=== PATIENT | male | born 1955 | race American Indian/Alaskan Native ===

== ENCOUNTER 2017-04-30 09:53 | Inpatient (IN) | payer MEDICARE ==
--- NOTE | 2017-04-30 10:58 | Emergency Department Report ---
ED General Adult HPI - General Chief complaint: Dizziness Stated complaint: DIZZINESS/NUASEA Time Seen by Provider: 04/30/17 10:57 Source: patient Mode of arrival: Ambulatory Limitations: No Limitations - History of Present Illness Initial comments: She complains of recurrent and worsening vertigo associated with dizziness and difficulty walking for the past 2 days. He states that this spinning sensation occurs worse when looking to the left. When he sits up in the gurney or changes his position it does get worse as well. He was able to walk. He is not aware of any acute loss of coordination. He denies headache. He does take Plavix and Coumadin. He has a history of atrial fibrillation. He states he has not had this problem in the past. He denies any earache or stuffiness or any apparent ENT type symptom otherwise. -: Gradual, days(s) Severity scale (0 -10): 0 Consistency: intermittent Improves with: none Worsens with: none Associated Symptoms: denies other symptoms (except as described) - Related Data Home Medications Medication Instructions Recorded Confirmed Last Taken Terazosin [Hytrin] 1 mg PO DAILY 04/04/13 12/13/14 12/13/14 Warfarin [Coumadin] 7.5 mg PO QDAY 04/04/13 12/13/14 12/12/14 ALBUTEROL Inhaler [ProAir HFA 2 puff IH QID PRN 11/10/14 12/13/14 12/13/14 Inhaler] Aspirin [Aspirin BABY CHEW TAB] 162 mg PO DAILY 11/10/14 12/13/14 12/13/14 Atorvastatin [Lipitor] 40 mg PO QHS 11/10/14 12/13/14 12/13/14 Calcitriol 0.25 mcg PO 3XW 11/10/14 12/13/14 12/13/14 Cholecalciferol Vit D3 [Vitamin D3] 3,000 unit PO QDAY 11/10/14 12/13/14 Finasteride [Proscar] 5 mg PO QDAY 11/10/14 12/13/14 12/13/14 Fosinopril Sodium 40 mg PO QDAY 11/10/14 12/13/14 12/13/14 Furosemide [Lasix] 40 mg PO BID 11/10/14 12/13/14 12/12/14 Nitroglycerin [Nitrostat] 0.4 mg SL Q5M 11/10/14 12/13/14 12/13/14 Potassium Chloride 20 Meq 20 meq PO DAILY 11/10/14 12/13/14 12/13/14 Tamsulosin 0.4 mg PO DAILY 11/10/14 12/13/14 12/13/14 Previous Rx's Medication Instructions Recorded Last Taken Type Metoprolol [Lopressor TAB] 50 mg PO Q8HR #90 tablet 12/14/14 Unknown Rx amLODIPine [Norvasc] 5 mg PO DAILY #30 tablet 12/14/14 Unknown Rx Allergies Allergy/AdvReac Type Severity Reaction Status Date / Time tetracycline [Tetracycline] Allergy Intermediate Nausea Verified 04/30/17 09:58 amlodipine [From Norvasc] AdvReac Vomiting Verified 04/30/17 09:58 ED Review of Systems ROS: Stated complaint: DIZZINESS/NUASEA Other details as noted in HPI Constitutional: denies: chills, fever Eyes: denies: eye pain, eye discharge, vision change ENT: denies: ear pain, throat pain Respiratory: denies: cough, shortness of breath, wheezing Cardiovascular: denies: chest pain, palpitations Endocrine: no symptoms reported Gastrointestinal: denies: abdominal pain, nausea, diarrhea Genitourinary: denies: urgency, dysuria Musculoskeletal: denies: back pain, joint swelling, arthralgia Skin: denies: rash, lesions Neurological: vertigo. denies: headache, weakness, numbness, paresthesias, confusion, abnormal gait Psychiatric: denies: anxiety, depression Hematological/Lymphatic: denies: easy bleeding, easy bruising ED Past Medical Hx - Past Medical History Previous Medical History?: Yes Hx Hypertension: Yes Hx Heart Attack/AMI: Yes (04/04/2013) Hx Congestive Heart Failure: No Hx Diabetes: Yes Hx Deep Vein Thrombosis: No Hx Pulmonary Embolism: No Hx Liver Disease: Yes (Hepatitis C) Hx Renal Disease: Yes Hx Asthma: Yes Hx COPD: No Hx Tuberculosis: No Hx HIV: No Additional medical history: sleep apnea, Hep C, Atrial Fib., Enlarged Prostate - Surgical History Past Surgical History?: Yes Hx Coronary Stent: Yes Hx Pacemaker: No Hx Internal Defibrillator: No Additional Surgical History: Graft L upper arm - Social History Smoking Status: Former Smoker Substance Use Type: None - Medications Home Medications: Home Medications Medication Instructions Recorded Confirmed Last Taken Type Terazosin [Hytrin] 1 mg PO DAILY 04/04/13 12/13/14 12/13/14 History Warfarin [Coumadin] 7.5 mg PO QDAY 04/04/13 12/13/14 12/12/14 History ALBUTEROL Inhaler [ProAir HFA 2 puff IH QID PRN 11/10/14 12/13/14 12/13/14 History Inhaler] Aspirin [Aspirin BABY CHEW TAB] 162 mg PO DAILY 11/10/14 12/13/14 12/13/14 History Atorvastatin [Lipitor] 40 mg PO QHS 11/10/14 12/13/14 12/13/14 History Calcitriol 0.25 mcg PO 3XW 11/10/14 12/13/14 12/13/14 History Cholecalciferol Vit D3 [Vitamin D3] 3,000 unit PO QDAY 11/10/14 12/13/14 History Finasteride [Proscar] 5 mg PO QDAY 11/10/14 12/13/14 12/13/14 History Fosinopril Sodium 40 mg PO QDAY 11/10/14 12/13/14 12/13/14 History Furosemide [Lasix] 40 mg PO BID 11/10/14 12/13/14 12/12/14 History Nitroglycerin [Nitrostat] 0.4 mg SL Q5M 11/10/14 12/13/14 12/13/14 History Potassium Chloride 20 Meq 20 meq PO DAILY 11/10/14 12/13/14 12/13/14 History Tamsulosin 0.4 mg PO DAILY 11/10/14 12/13/14 12/13/14 History Metoprolol [Lopressor TAB] 50 mg PO Q8HR #90 tablet 12/14/14 Unknown Rx amLODIPine [Norvasc] 5 mg PO DAILY #30 tablet 12/14/14 Unknown Rx ED Physical Exam - General Limitations: No Limitations General appearance: alert, in no apparent distress - Head Head exam: Present: atraumatic, normocephalic - Eye Eye exam: Present: normal appearance, PERRL, EOMI. Absent: scleral icterus, nystagmus - ENT ENT exam: Present: normal orophraynx, mucous membranes moist - Neck Neck exam: Present: normal inspection, other (no bruit noted). Absent: tenderness, meningismus - Respiratory Respiratory exam: Present: normal lung sounds bilaterally. Absent: respiratory distress - Cardiovascular Cardiovascular Exam: Present: regular rate, normal rhythm. Absent: systolic murmur, diastolic murmur, rubs, gallop - GI/Abdominal GI/Abdominal exam: Present: soft, normal bowel sounds. Absent: distended, tenderness, guarding, rebound, rigid - Rectal Rectal exam: Present: deferred - Extremities Exam Extremities exam: Present: normal inspection - Back Exam Back exam: Present: normal inspection - Neurological Exam Neurological exam: Present: alert, oriented X3, CN II-XII intact, other ( cerebellar testing was normal. Gait testing was deemed not safe as the patient was having substantial vertigo.). Absent: motor sensory deficit - Psychiatric Psychiatric exam: Present: normal affect, normal mood - Skin Skin exam: Present: warm, dry, intact, normal color. Absent: rash ED Course Vital Signs 04/30/17 04/30/17 04/30/17 09:58 10: 11:01 Temperature 97.8 F 97.8 F 97.5 F L Pulse Rate 78 76 Respiratory 18 18 16 Rate Blood Pressure 140/84 136/85 [Right] O2 Sat by Pulse 98 100 Oximetry - Reevaluation(s) Reevaluation #1: Patient states that his vertigo is still present but somewhat better. He will be referred to the hospitalist further care and evaluation. I am concerned that he is on Plavix and aspirin. He has history of atrial fibrillation. I would rather see have him stay to complete his cardiovascular workup. 04/30/17 12:43 ED Medical Decision Making - Lab Data Result diagrams: 04/30/17 10:35 04/30/17 10:35 Laboratory Results - last 24 hr 04/30/17 04/30/17 04/30/17 10:35 10:35 10:35 WBC 4.3 L RBC 3.70 Hgb 11.2 L Hct 33.9 L MCV 91 MCH 30 MCHC 33 RDW 16.1 H Plt Count 149 Lymph % (Auto) 22.5 [place] % (Auto) 11.1 H Eos % (Auto) 5.4 H Baso % (Auto) 1.5 Lymph # 1.0 L [place] # 0.5 Eos # 0.2 Baso # 0.1 Seg Neutrophils % 59.5 Seg Neutrophils # 2.5 PT 26.2 H INR 2.28 H Sodium 144 Potassium 3.8 Chloride 105.7 Carbon Dioxide 23 Anion Gap 19 BUN 35 H Creatinine 5.3 H Estimated GFR 13 BUN/Creatinine Ratio 7 Glucose 89 Calcium 8.5 Total Bilirubin AST ALT Alkaline Phosphatase Troponin T < 0.010 Total Protein Albumin Albumin/Globulin Ratio 04/30/17 10:59 WBC RBC Hgb Hct MCV MCH MCHC RDW Plt Count Lymph % (Auto) [place] % (Auto) Eos % (Auto) Baso % (Auto) Lymph # [place] # Eos # Baso # Seg Neutrophils % Seg Neutrophils # PT INR Sodium Potassium Chloride Carbon Dioxide Anion Gap BUN Creatinine Estimated GFR BUN/Creatinine Ratio Glucose Calcium Total Bilirubin 0.50 AST 9 ALT 7 Alkaline Phosphatase 71 Troponin T Total Protein 7.3 Albumin 3.7 L Albumin/Globulin Ratio 1.0 - EKG Data -: EKG Interpreted by Me EKG shows normal: sinus rhythm, intervals, QRS complexes, ST-T waves Rate: normal - EKG Data Interpretation: other (left axis deviation somewhat delayed R-wave progression) - Radiology Data interpreted by me: Chest x-ray and CT head showed nothing acute Critical care attestation.: If time is entered above; I have spent that time in minutes in the direct care of this critically ill patient, excluding procedure time. ED Disposition Clinical Impression: Vertigo, Anticoagulated on Coumadin Disposition: OP ADMIT IP TO THIS HOSP Is pt being admited?: Yes Does the pt Need Aspirin: No (on anticoagulant and Plavix) Condition: Stable Referrals: [facility],[place] [Other] - 3-5 Days Time of Disposition: 12:45
[2017-04-30 11:01] LABS: Anion Gap 19 mmol/L; BUN/Creatinine Ratio 7; Blood Urea Nitrogen 35 mg/dL (9-20); Calcium 8.5 mg/dL (8.4-10.2); Carbon Dioxide 23 mmol/L (22-30); Chloride 105.7 mmol/L (98-107); Glucose 89 mg/dL (75-100); Potassium 3.8 mmol/L (3.6-5.0); Sodium 144 mmol/L (137-145)
[2017-04-30 11:13] LABS: INR 2.28 (0.87-1.13)
[2017-04-30 11:31] LABS: Basophils % (Auto) 1.5 % (0.0-1.8); Eosinophils % (Auto) 5.4 % (0.0-4.3); Hematocrit 33.9 % (35.5-45.6); Hemoglobin 11.2 gm/dl (11.8-15.2); Mean Corpuscular HGB Conc 33 % (32-34); Mean Corpuscular Hemoglobin 30 pg (28-32); Mean Corpuscular Volume 91 fl (84-94); Platelet Count 149 K/mm3 (140-440); Red Cell Distribution Width 16.1 % (13.2-15.2); White Blood Count 4.3 K/mm3 (4.5-11.0)
--- NOTE | 2017-04-30 11:56 | Cat Scan Report ---
CT HEAD WITHOUT CONTRAST: HISTORY: Vertigo, on Coumadin therapy, evaluate for hemorrhage. Serial contiguous axial images were obtained through the cranium. Intravenous contrast material was not administered. The ventricles are normal in size and appearance. There is no mass effect or midline shift. No areas of abnormally increased or decreased attenuation are seen. No mass lesion is seen. There is complete opacification of the left maxillary sinus, right frontal sinus and right anterior ethmoid air cells. This appears chronic. The mastoid air cells and middle ear contents are within normal limits. IMPRESSION: Cranial CT scan within normal limits. Sinus disease which is likely chronic.
[2017-04-30 12:36] LABS: Alanine Aminotransferase 7 units/L (7-56); Albumin 3.7 g/dL (3.9-5); Alkaline Phosphatase 71 units/L (35-129); Total Protein 7.3 g/dL (6.3-8.2)
--- NOTE | 2017-04-30 13:02 | XRay Report ---
Single view chest: Compared to 12/14/14. History: Hypertension. Findings: Cardiomegaly. Trachea is midline. No consolidation, pneumothorax or pleural effusion. Impression: Cardiomegaly. No acute lung changes.
[2017-04-30 13:13] LABS: Bilirubin,Direct < 0.2 mg/dL (0-0.2); Bilirubin,Indirect 0.3 mg/dL
[2017-04-30] MEDS ORDERED: PROAIR IH PRN (20:02)
[2017-04-30] MEDS ORDERED: ZOFRAN IV PRN (20:08)
[2017-04-30] MEDS ORDERED: TYLENOL PO PRN (20:08)
[2017-04-30] MEDS ORDERED: MILK OF MAGNESIA PO PRN (20:08)
[2017-04-30] MEDS ORDERED: DULCOLAX PR PRN (20:08)
[2017-04-30] MEDS ORDERED: PERCOCET 5/325 PO PRN (20:09)
[2017-04-30] MEDS ORDERED: FOSINOPRIL SODIUM 40 MG PO SCH (20:15)
[2017-04-30] MEDS ORDERED: SODIUM CHLORIDE FLUSH SYRINGE 10 ML IV PRN (20:15)
[2017-04-30] MEDS ORDERED: PROVENTIL IH PRN (20:22)
--- NOTE | 2017-04-30 20:38 | History and Physical Report ---
History of Present Illness Date of examination: 04/30/17 Date of admission: 04/30/17 12:47 Chief complaint: Severe dizzines for 2 to 3 days History of present illness: History of Present illness 62 AAM with pmh of HTN ESRD ASTHMAand BPH c/o recurrent and worsening vertigo associated with dizziness and difficulty walking for the past 2 days. He states that this spinning sensation occurs worse when looking to the left. When he sits up in the gurney or changes his position it does get worse as well. He was able to walk. He is not aware of any acute loss of coordination. He denies headache. He does take Plavix and Coumadin. He has a history of atrial fibrillation. He states he has not had this problem in the past. He denies any earache or stuffiness or any apparent ENT type symptom otherwise. -: Gradual, days(s) Severity scale (0 -10): 0 Consistency: intermittent Improves with: none Worsens with: none Associated Symptoms: denies other symptoms (except as described) Past Medical History Previous Medical History?: Yes Hx Hypertension: Yes Hx Heart Attack/AMI: Yes (04/04/2013) Hx Diabetes: Yes Hx Liver Disease: Yes (Hepatitis C) Hx Renal Disease: Yes Hx Asthma: Yes Additional medical history: sleep apnea, Hep C, Atrial Fib., Enlarged Prostate ESRD-got av graft for pending HD - Surgical History Past Surgical History?: Yes Hx Coronary Stent: Yes Graft L upper arm - Social History Smoking Status: Former Smoker Substance Use Type: None - Medications Home Medications: Home Medications Medication Instructions Recorded Confirmed Last Taken Type Terazosin [Hytrin] 1 mg PO DAILY 04/04/13 12/13/14 12/13/14 History Warfarin [Coumadin] 7.5 mg PO QDAY 04/04/13 12/13/14 12/12/14 History ALBUTEROL Inhaler [ProAir HFA 2 puff IH QID PRN 11/10/14 12/13/14 12/13/14 History Inhaler] Aspirin [Aspirin BABY CHEW TAB] 162 mg PO DAILY 11/10/14 12/13/14 12/13/14 History Atorvastatin [Lipitor] 40 mg PO QHS 11/10/14 12/13/14 12/13/14 History Calcitriol 0.25 mcg PO 3XW 11/10/14 12/13/14 12/13/14 History Cholecalciferol Vit D3 [Vitamin D3] 3,000 unit PO QDAY 11/10/14 12/13/14 History Finasteride [Proscar] 5 mg PO QDAY 11/10/14 12/13/14 12/13/14 History Fosinopril Sodium 40 mg PO QDAY 11/10/14 12/13/14 12/13/14 History Furosemide [Lasix] 40 mg PO BID 11/10/14 12/13/14 12/12/14 History Nitroglycerin [Nitrostat] 0.4 mg SL Q5M 11/10/14 12/13/14 12/13/14 History Potassium Chloride 20 Meq 20 meq PO DAILY 11/10/14 12/13/14 12/13/14 History Tamsulosin 0.4 mg PO DAILY 11/10/14 12/13/14 12/13/14 History Metoprolol [Lopressor TAB] 50 mg PO Q8HR #90 tablet 12/14/14 Unknown Rx amLODIPine [Norvasc] 5 mg PO DAILY #30 tablet 12/14/14 Unknown Rx Review of Systems Stated complaint: DIZZINESS/NUASEA Other details as noted in HPI Constitutional: denies: chills, fever Eyes: denies: eye pain, eye discharge, vision change ENT: denies: ear pain, throat pain Respiratory: denies: cough, shortness of breath, wheezing Cardiovascular: denies: chest pain, palpitations Endocrine: no symptoms reported Gastrointestinal: denies: abdominal pain, nausea, diarrhea Genitourinary: denies: urgency, dysuria Musculoskeletal: denies: back pain, joint swelling, arthralgia Skin: denies: rash, lesions Neurological: vertigo. denies: headache, weakness, numbness, paresthesias, confusion, abnormal gait Psychiatric: denies: anxiety, depression Hematological/Lymphatic: denies: easy bleeding, easy bruising Medications and Allergies Allergies Allergy/AdvReac Type Severity Reaction Status Date / Time tetracycline [Tetracycline] Allergy Intermediate Nausea Verified 04/30/17 09:58 amlodipine [From Norvasc] AdvReac Vomiting Verified 04/30/17 09:58 Home Medications Medication Instructions Recorded Confirmed Last Taken Type Terazosin [Hytrin] 1 mg PO DAILY 04/04/13 12/13/14 12/13/14 History Warfarin [Coumadin] 7.5 mg PO QDAY 04/04/13 12/13/14 12/12/14 History ALBUTEROL Inhaler [ProAir HFA 2 puff IH QID PRN 11/10/14 12/13/14 12/13/14 History Inhaler] Aspirin [Aspirin BABY CHEW TAB] 162 mg PO DAILY 11/10/14 12/13/14 12/13/14 History Atorvastatin [Lipitor] 40 mg PO QHS 11/10/14 12/13/14 12/13/14 History Calcitriol 0.25 mcg PO 3XW 11/10/14 12/13/14 12/13/14 History Cholecalciferol Vit D3 [Vitamin D3] 3,000 unit PO QDAY 11/10/14 12/13/14 History Finasteride [Proscar] 5 mg PO QDAY 11/10/14 12/13/14 12/13/14 History Fosinopril Sodium 40 mg PO QDAY 11/10/14 12/13/14 12/13/14 History Furosemide [Lasix] 40 mg PO BID 11/10/14 12/13/14 12/12/14 History Nitroglycerin [Nitrostat] 0.4 mg SL Q5M 11/10/14 12/13/14 12/13/14 History Potassium Chloride 20 Meq 20 meq PO DAILY 11/10/14 12/13/14 12/13/14 History Tamsulosin 0.4 mg PO DAILY 11/10/14 12/13/14 12/13/14 History Metoprolol [Lopressor TAB] 50 mg PO Q8HR #90 tablet 12/14/14 Unknown Rx amLODIPine [Norvasc] 5 mg PO DAILY #30 tablet 12/14/14 Unknown Rx Active Meds: Active Medications Acetaminophen (Tylenol) 650 mg PO Q4H PRN PRN Reason: Pain MILD(1-3)/Fever >100.5/MENDOZA Albuterol (Proventil) 2.5 mg IH Q4HRT PRN PRN Reason: Shortness Of Breath Amlodipine Besylate (Norvasc) 5 mg PO DAILY [place] Aspirin (Baby Aspirin) 162 mg PO DAILY [place] Bisacodyl (Dulcolax) 10 mg [place] QDAY PRN PRN Reason: Constipation unrelieved by MOM Calcitriol (Rocaltrol) 0.25 mcg PO MoWeFr [place] Cholecalciferol (Vitamin D3) 3,000 unit PO QDAY [place] Famotidine (Pepcid) 10 mg IV BID [place] Finasteride (Proscar) 5 mg PO QDAY [place] Sodium Chloride (Nacl 0.45% 1000 Ml) 1,000 mls @ 42 mls/hr IV DIRECT [place] Stop: 05/01/17 19:00 Influenza Virus Vaccine Quadrival (Fluarix Quad [id number](36 Mos+)) 0.5 ml IM .ONCE ONE Stop: 05/01/17 12:01 Lisinopril (Zestril) 40 mg PO QDAY [place] Magnesium Hydroxide (Milk Of Magnesia) 30 ml PO Q4H PRN PRN Reason: Constipation Ondansetron HCl (Zofran) 4 mg IV Q8H PRN PRN Reason: N/V unrelieved by Reglan Oxycodone/Acetaminophen (Percocet 5/325) 1 tab PO Q6H PRN PRN Reason: Pain, Moderate (4-6) Simvastatin (Zocor) 20 mg PO QHS [place] Sodium Chloride (Sodium Chloride Flush Syringe 10 Ml) 10 ml IV PRN PRN PRN Reason: LINE FLUSH Exam - Constitutional Vitals: Temp Pulse Resp BP Pulse Ox 97.6 F 74 20 144/88 98 04/30/17 15:46 04/30/17 15:46 04/30/17 15:46 04/30/17 15:46 04/30/17 16:10 General appearance: Present: no acute distress, well-nourished - EENT Eyes: Present: PERRL ENT: hearing intact, clear oral mucosa - Neck Neck: Present: supple, normal ROM - Respiratory Respiratory effort: normal Respiratory: bilateral: CTA - Cardiovascular Heart rate: 80 Rhythm: irregularly irregular Heart Sounds: Present: S1 & S2. Absent: rub, click - Extremities Extremities: no ischemia, pulses intact, pulses symmetrical, No edema Peripheral Pulses: within normal limits - Abdominal General gastrointestinal: Present: soft, non-tender, non-distended, normal bowel sounds Male genitourinary: Present: normal - Rectal Rectal Exam: deferred - Integumentary Integumentary: Present: clear, warm, dry - Musculoskeletal Musculoskeletal: gait normal, strength equal bilaterally - Psychiatric Psychiatric: appropriate mood/affect, intact judgment & insight - Neurologic Neurologic: CNII-XII intact, moves all extremities - Allied Health Allied health notes reviewed: nursing, case management Results - Labs CBC & Chem 7: 05/01/17 06:58 05/01/17 06:58 Labs: Laboratory Last Values WBC 4.3 K/mm3 (4.5-11.0) L 04/30/17 10:35 RBC 3.70 M/mm3 (3.65-5.03) 04/30/17 10:35 Hgb 11.2 gm/dl (11.8-15.2) L 04/30/17 10:35 Hct 33.9 % (35.5-45.6) L 04/30/17 10:35 MCV 91 fl (84-94) 04/30/17 10:35 MCH 30 pg (28-32) 04/30/17 10:35 MCHC 33 % (32-34) 04/30/17 10:35 RDW 16.1 % (13.2-15.2) H 04/30/17 10:35 Plt Count 149 K/mm3 (140-440) 04/30/17 10:35 Lymph % (Auto) 22.5 % (13.4-35.0) 04/30/17 10:35 [place] % (Auto) 11.1 % (0.0-7.3) H 04/30/17 10:35 Eos % (Auto) 5.4 % (0.0-4.3) H 04/30/17 10:35 Baso % (Auto) 1.5 % (0.0-1.8) 04/30/17 10:35 Lymph # 1.0 K/mm3 (1.2-5.4) L 04/30/17 10:35 [place] # 0.5 K/mm3 (0.0-0.8) 04/30/17 10:35 Eos # 0.2 K/mm3 (0.0-0.4) 04/30/17 10:35 Baso # 0.1 K/mm3 (0.0-0.1) 04/30/17 10:35 Seg Neutrophils % 59.5 % (40.0-70.0) 04/30/17 10:35 Seg Neutrophils # 2.5 K/mm3 (1.8-7.7) 04/30/17 10:35 PT 26.2 Sec. (12.2-14.9) H 04/30/17 10:35 INR 2.28 (0.87-1.13) H 04/30/17 10:35 Sodium 144 mmol/L (137-145) 04/30/17 10:35 Potassium 3.8 mmol/L (3.6-5.0) 04/30/17 10:35 Chloride 105.7 mmol/L (98-107) 04/30/17 10:35 Carbon Dioxide 23 mmol/L (22-30) 04/30/17 10:35 Anion Gap 19 mmol/L 04/30/17 10:35 BUN 35 mg/dL (9-20) H 04/30/17 10:35 Creatinine 5.3 mg/dL (0.8-1.5) H 04/30/17 10:35 Estimated GFR 13 ml/min 04/30/17 10:35 BUN/Creatinine Ratio 7 % 04/30/17 10:35 Glucose 89 mg/dL (75-100) 04/30/17 10:35 POC Glucose 82 (70-105) 04/30/17 15:53 Hemoglobin A1c 4.6 % (4-6) 04/30/17 Unknown Calcium 8.5 mg/dL (8.4-10.2) 04/30/17 10:35 Total Bilirubin 0.50 mg/dL (0.1-1.2) 04/30/17 10:59 Direct Bilirubin < 0.2 mg/dL (0-0.2) 04/30/17 10:59 Indirect Bilirubin 0.3 mg/dL 04/30/17 10:59 AST 9 units/L (5-40) 04/30/17 10:59 ALT 7 units/L (7-56) 04/30/17 10:59 Alkaline Phosphatase 71 units/L (35-129) 04/30/17 10:59 Troponin T < 0.010 ng/mL (0.00-0.029) 04/30/17 15:59 Total Protein 7.3 g/dL (6.3-8.2) 04/30/17 10:59 Albumin 3.7 g/dL (3.9-5) L 04/30/17 10:59 Albumin/Globulin Ratio 1.0 % 04/30/17 10:59 Short CBC 04/30/17 05/01/17 Range/Units 10:35 06:58 WBC 4.3 L 4.7 (4.5-11.0) K/mm3 Hgb 11.2 L 11.7 L (11.8-15.2) gm/dl Hct 33.9 L 36.6 (35.5-45.6) % Plt Count 149 147 (140-440) K/mm3 BMP 04/30/17 05/01/17 10:35 06:58 Sodium 144 142 Potassium 3.8 4.1 Chloride 105.7 104.6 Carbon Dioxide 23 25 BUN 35 H 33 H Creatinine 5.3 H 4.8 H Glucose 89 88 Calcium 8.5 8.8 Cardiac Enzymes 04/30/17 04/30/17 04/30/17 Range/Units 10:35 13:12 15:59 Troponin T < 0.010 < 0.010 < 0.010 (0.00-0.029) ng/mL Liver Function 04/30/17 05/01/17 Range/Units 10:59 06:58 Total Bilirubin 0.50 0.50 (0.1-1.2) mg/dL Direct Bilirubin < 0.2 (0-0.2) mg/dL AST 9 9 (5-40) units/L ALT 7 7 (7-56) units/L Alkaline Phosphatase 71 61 (35-129) units/L Albumin 3.7 L 3.8 L (3.9-5) g/dL - Imaging and Cardiology EKG: report reviewed (NSR 76/min) Chest x-ray: report reviewed (NAF) CT Scan - head: report reviewed (NAF) Assessment and Plan Advance Directives: Yes (full code) VTE prophylaxis?: Chemical Plan of care discussed with patient/family: Yes - Patient Problems (1) Vertebro-basilar artery syndrome Current Visit: Yes Status: Acute Plan to address problem: Severe dizzines. Possible BPPV MRI/MRA ordered to r/o Brainstem stroke.Also CDS and ECHO as part of stroke w/u if MRI etc negative to f/u with Dr Morel who is a specialist for BPPV (2) Chronic renal failure, stage 4 (severe) Current Visit: Yes Status: Chronic Plan to address problem: Nephrology consulted Has AVG in LUE Not on HD yet (3) Anticoagulated on Coumadin Current Visit: Yes Status: Chronic Plan to address problem: Not in AFIB. Coumadin maybe d/c'd (4) HTN (hypertension) Current Visit: Yes Status: Chronic Qualifiers: Hypertension type: essential hypertension Qualified Code(s): I10 - Essential (primary) hypertension Plan to address problem: on Fosinopril (5) BPH (benign prostatic hyperplasia) Current Visit: Yes Status: Chronic Qualifiers: Lower urinary tract symptom presence: symptoms present Lower urinary tract symptom detail: urinary hesitancy Qualified Code(s): N40.1 - Benign prostatic hyperplasia with lower urinary tract symptoms; R39.11 - Hesitancy of micturition ; R39.11 - Hesitancy of micturition Plan to address problem: cont proscar and Flomax (6) Asthma Current Visit: Yes Status: Inactive Qualifiers: Asthma severity: unspecified severity Asthma persistence: A Asthma complication type: A Plan to address problem: Cont Bronchodilator's PRN (7) DVT prophylaxis Current Visit: Yes Status: Acute Plan to address problem: on Heparin
[2017-04-30] MEDS ORDERED: NACL 0.45% 1000 ML 1,000 ML IV SCH (21:00)
[2017-05-01] MEDS: BABY ASPIRIN PO SCH ×2 (01:25→12:17)
[2017-05-01] MEDS: ZOCOR PO SCH (01:25)
[2017-05-01] MEDS: PEPCID IV SCH ×2 (01:25→09:37)
[2017-05-01] MEDS: NORVASC PO SCH ×2 (01:26→12:18)
[2017-05-01] MEDS: PROSCAR PO SCH ×2 (01:28→12:16)
[2017-05-01] MEDS ORDERED: ANTIVERT PO ONE (04:45)
[2017-05-01 07:50] LABS: Basophils % (Auto) 1.2 % (0.0-1.8); Eosinophils % (Auto) 4.5 % (0.0-4.3); Hematocrit 36.6 % (35.5-45.6); Hemoglobin 11.7 gm/dl (11.8-15.2); Mean Corpuscular HGB Conc 32 % (32-34); Mean Corpuscular Hemoglobin 30 pg (28-32); Mean Corpuscular Volume 92 fl (84-94); Platelet Count 147 K/mm3 (140-440); Red Blood Count 3.98 M/mm3 (3.65-5.03); Red Cell Distribution Width 16.1 % (13.2-15.2); White Blood Count 4.7 K/mm3 (4.5-11.0)
[2017-05-01 08:09] LABS: Albumin 3.8 g/dL (3.9-5); Albumin/Globulin Ratio 1.2 %; Bilirubin,Total 0.5 mg/dL (0.1-1.2); Calcium 8.8 mg/dL (8.4-10.2); Chloride 104.6 mmol/L (98-107); Potassium 4.1 mmol/L (3.6-5.0); Total Protein 7.1 g/dL (6.3-8.2)
--- NOTE | 2017-05-01 09:47 | Consultation ---
History of Present Illness - Reason for Consult Consult date: 05/01/17 chronic renal failure - History of Present Illness The patient is a 62 YP AAM with medical history significant for Type 2 DM, HTN, HLD, Obesity, CKd stage 5, IVAN, Hep C, Atrial Fib. and Enlarged Prostate came to the hospital with 3 days h/o dizziness / vertigo. The symptoms are worse on turning the head on any side. Associated symptoms include nausea. Patient denies any syncope, MENDOZA, blurry vision, vomiting, CP, sob or weakness. He had left arm AVF placed last month. He has chronic decreased appetite but no weight loss. 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 Past History Past Medical History: anemia, diabetes, hypertension, hyperlipidemia, renal failure, other (IVAN, A.fib) Medications and Allergies Allergies Allergy/AdvReac Type Severity Reaction Status Date / Time tetracycline [Tetracycline] Allergy Intermediate Nausea Verified 04/30/17 09:58 amlodipine [From Norvas] AdvReac Vomiting Verified 04/30/17 09:58 Home Medications Medication Instructions Recorded Confirmed Last Taken Type Terazosin [Hytrin] 1 mg PO DAILY 04/04/13 12/13/14 12/13/14 History Warfarin [Coumadin] 7.5 mg PO QDAY 04/04/13 12/13/14 12/12/14 History ALBUTEROL Inhaler [ProAir HFA 2 puff IH QID PRN 11/10/14 12/13/14 12/13/14 History Inhaler] Aspirin [Aspirin BABY CHEW TAB] 162 mg PO DAILY 11/10/14 12/13/14 12/13/14 History Atorvastatin [Lipitor] 40 mg PO QHS 11/10/14 12/13/14 12/13/14 History Calcitriol 0.25 mcg PO 3XW 11/10/14 12/13/14 12/13/14 History Cholecalciferol Vit D3 [Vitamin D3] 3,000 unit PO QDAY 11/10/14 12/13/14 History Finasteride [Proscar] 5 mg PO QDAY 11/10/14 12/13/14 12/13/14 History Fosinopril Sodium 40 mg PO QDAY 11/10/14 12/13/14 12/13/14 History Furosemide [Lasix] 40 mg PO BID 04/12/13/14 12/12/14 History Nitroglycerin [Nitrostat] 0.4 mg SL Q5M 11/10/14 12/13/14 12/13/14 History Potassium Chloride 20 Meq 20 meq PO DAILY 11/10/14 12/13/14 12/13/14 History Tamsulosin 0.4 mg PO DAILY 11/10/14 12/13/14 12/13/14 History Metoprolol [Lopressor TAB] 50 mg PO Q8HR #90 tablet 12/14/14 Unknown Rx amLODIPine [Norvasc] 5 mg PO DAILY #30 tablet 12/14/14 Unknown Rx Active Meds: Active Medications Acetaminophen (Tylenol) 650 mg PO Q4H PRN PRN Reason: Pain MILD(1-3)/Fever >100.5/MENDOZA Albuterol (Proventil) 2.5 mg IH Q4HRT PRN PRN Reason: Shortness Of Breath Amlodipine Besylate (Norvasc) 5 mg PO DAILY [facility] Last Admin: 05/01/17 01:26 Dose: 5 mg Aspirin (Baby Aspirin) 162 mg PO DAILY [facility] Last Admin: 05/01/17 01:25 Dose: 162 mg Bisacodyl (Dulcolax) 10 mg [place] QDAY PRN PRN Reason: Constipation unrelieved by MOM Calcitriol (Rocaltrol) 0.25 mcg PO MoWeFr [facility] Cholecalciferol (Vitamin D3) 3,000 unit PO QDAY [facility] Famotidine (Pepcid) 10 mg IV BID [facility] Last Admin: 05/01/17 09:37 Dose: 10 mg Finasteride (Proscar) 5 mg PO QDAY [facility] Last Admin: 05/01/17 01:28 Dose: 5 mg Sodium Chloride (Nacl 0.45% 1000 Ml) 1,000 mls @ 42 mls/hr IV DIRECT [facility] Stop: 05/01/17 19:00 Last Admin: 05/01/17 09:41 Dose: 42 mls/hr Influenza Virus Vaccine Quadrival (Fluarix Quad [id number](36 Mos+)) 0.5 ml IM .ONCE ONE Stop: 05/01/17 12:01 Lisinopril (Zestril) 40 mg PO QDAY [facility] Magnesium Hydroxide (Milk Of Magnesia) 30 ml PO Q4H PRN PRN Reason: Constipation Ondansetron HCl (Zofran) 4 mg IV Q8H PRN PRN Reason: N/V unrelieved by Reglan Last Admin: 05/01/17 04:45 Dose: 4 mg Oxycodone/Acetaminophen (Percocet 5/325) 1 tab PO Q6H PRN PRN Reason: Pain, Moderate (4-6) Simvastatin (Zocor) 20 mg PO QHS [facility] Last Admin: 05/01/17 01:25 Dose: 20 mg Sodium Chloride (Sodium Chloride Flush Syringe 10 Ml) 10 ml IV PRN PRN PRN Reason: LINE FLUSH Review of Systems Constitutional: anorexia, poor appetite, no weight loss, no weight gain, no fever, no chills, no weakness Ears, nose, mouth and throat: no epistaxis Cardiovascular: lightheadedness, high blood pressure, leg edema, no chest pain, no orthopnea, no palpitations, no syncope, no shortness of breath, no paroxysmal nocturnal dyspnea Respiratory: sleep apnea, no cough, no cough with sputum, no hemoptysis, no shortness of breath, no dyspnea on exertion Gastrointestinal: nausea, no abdominal pain, no vomiting, no diarrhea, no hematemesis, no melena Genitourinary Male: no dysuria, no hematuria Rectal: no bleeding Musculoskeletal: no hot joints Integumentary: no redness, no wounds Neurological: vertigo, no paralysis, no weakness, no syncope, no headaches, no convulsions, no change in speech, no confusion, no memory loss, no double vision , no loss of vision Psychiatric: no disorientation Hematologic/Lymphatic: no easy bruising, no easy bleeding Exam - Vital Signs Vital signs: Vital Signs Temp Resp 97.8 F 18 04/30/17 09:58 04/30/17 09:58 - General Appearance General appearance: well-developed, well-nourished, appears stated age, obese, other (no distress) EENT: ATNC, PERRL, mucous membranes moist, hearing intact, vision intact Neck: Present: neck supple, trachea midline Respiratory: Clear to Ascultation Heart: regular, S1S2, no murmurs Gastrointestinal: Present: normoactive bowel sounds. Absent: tenderness, distended Integumentary: no rash Neurologic: no focal deficit, no asterixis, alert and oriented x3, CN 3-12 intact Musculoskeletal: Present: other (1+ edema of both LEs noted, Left arm AVF with good thrill) Psychiatric: mood/affect appropriate, cooperative Results - Lab Results 05/01/17 06:58 05/01/17 06:58 Most recent lab results Calcium 8.8 mg/dL (8.4-10.2) 05/01/17 06:58 Assessment and Plan - Patient Problems (1) Chronic kidney disease, stage 5 Current Visit: Yes Status: Chronic Plan to address problem: Patient with h/o CKD stage 5 followed at [place]. Monitor for RT needs. Patient has left arm AVF. Anticipate initiating hemodialysis soon. (2) Vertigo Current Visit: Yes Status: Acute (3) HTN (hypertension) Current Visit: Yes Status: Chronic Qualifiers: Hypertension type: essential hypertension Qualified Code(s): I10 - Essential (primary) hypertension Plan to address problem: BP well controlled. (4) Anemia secondary to renal failure Current Visit: Yes Status: Chronic
[2017-05-01] MEDS ORDERED: CALCITRIOL 0.25 MCG PO SCH (10:00)
--- NOTE | 2017-05-01 10:54 | Magnetic Resonance Report ---
MRI OF THE BRAIN WITHOUT CONTRAST: HISTORY: CVA PROCEDURE: Multiplanar, multisequence MR imaging of the brain without IV contrast was performed. FINDINGS: CT head without contrast dated 04/30/17 was again reviewed. No evidence for acute ischemia, hemorrhage or mass. No chronic infarct or extra-axial fluid collection. Mild nonspecific chronic ischemic changes in the white matter and amy are noted. The midline structures are central. The basal cisterns are patent. Normal ventricular size. The orbital cavities and sella turcica demonstrate no abnormality. Occlusion of the left maxillary sinus and right frontal sinus with diffusion restriction is noted. Correlate for acute sinusitis. IMPRESSION: No acute intracranial process. No evidence for acute CVA. Sinus disease as described. Correlate for acute on chronic sinusitis.
--- NOTE | 2017-05-01 10:54 | Magnetic Resonance Report ---
MRA HEAD WITHOUT CONTRAST HISTORY: CVA, stroke. [id number] imaging with MIP reformations of the [place] is submitted. The arteries appear widely patent and free of hemodynamically significant stenosis or aneurysm dilatation. Both vertebral arteries are identified appearing patent as well. IMPRESSION: Unremarkable MRA head.
[2017-05-01] MEDS ORDERED: Fluarix Quad 2017-2018(36 MOS+) IM ONE (12:00)
[2017-05-01] MEDS: VITAMIN D3 PO SCH (12:16)
[2017-05-01] MEDS: ZESTRIL PO SCH (12:16)
--- NOTE | 2017-05-01 16:22 | Progress Note ---
Assessment and Plan /Vertebro-basilar artery syndrome Severe dizzines with positional change. Possible BPPV, place on meclizine MRI/MRA ordered negative for Brainstem stroke. <50 % stenosis on CDS and ECHO showed normal EF Patient can f/u with Dr Morel who is a specialist for BPPV /Chronic renal failure, stage 5 (severe) Nephrology consulted Has AVG in LUE Not on HD yet renal function stable /Anticoagulated on Coumadin likely for paroxysmal AFIB. 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 Medical records and medication list reviewed. No acute event overnight noted by the RN. Patient denies any chest pain or difficulty breathing. Patient is tolerating diet. He continue to c/o dizziness with positional change Discussed plan of care at bedside with patient. Objective - Exam Narrative Exam: GENERAL: well-developed and well-nourished WM lying on bed appeared to be in no discomfort. HEENT: Normocephalic. Atraumatic. No conjunctival congestion or icterus. Patient has moist mucous membranes. NECK: Supple. Trachea midline. CHEST/LUNGS: Clear to auscultated bilaterally, breathing nonlabored. No wheezes crackles or rhonchi. HEART/CARDIOVASCULAR: Regular in rate and rhythm. S1 and S2 positive. ABDOMEN: Abdomen is soft, nontender. Patient has normal bowel sounds. SKIN: There is no rash. Warm and dry. NEURO: No focal motor deficit. Follows command. MUSCULOSKELETAL: No joint effusion or tenderness. EXTRIMITY: No edema, no cyanosis or clubbing. PSYCH: Cooperative. - Constitutional Vitals: Vital Signs - 12hr 05/01/17 05/01/17 05/01/17 08:24 12:04 12:16 Temperature 98.0 F 98.2 F Pulse Rate 73 80 82 Respiratory 20 20 Rate Blood Pressure 133/86 146/98 146/98 O2 Sat by Pulse 97 97 Oximetry 05/01/17 16:05 Temperature 98.2 F Pulse Rate 72 Respiratory 22 Rate Blood Pressure 137/82 O2 Sat by Pulse 96 Oximetry - Labs CBC & Chem 7: 05/01/17 06:58 05/02/17 04:51 Labs: Abnormal lab results 05/01/17 05/01/17 Range/Units 06:58 06:58 Hgb 11.7 L (11.8-15.2) gm/dl RDW 16.1 H (13.2-15.2) % Coles % (Auto) 10.3 H (0.0-7.3) % Eos % (Auto) 4.5 H (0.0-4.3) % Lymph # 0.6 L (1.2-5.4) K/mm3 Seg Neutrophils % 70.3 H (40.0-70.0) % BUN 33 H (9-20) mg/dL Creatinine 4.8 H (0.8-1.5) mg/dL Albumin 3.8 L (3.9-5) g/dL HDL Cholesterol 37 L (40-59) mg/dL
[2017-05-01] MEDS ORDERED: ANTIVERT PO PRN (16:32)
[2017-05-02] MEDS: PEPCID IV SCH ×3 (02:00→21:23)
[2017-05-02] MEDS: ZOCOR PO SCH ×2 (02:00→21:24)
[2017-05-02 06:10] LABS: Calcium 8.5 mg/dL (8.4-10.2); Chloride 105.3 mmol/L (98-107); Phosphorous 3.7 mg/dL (2.5-4.5); Potassium 3.9 mmol/L (3.6-5.0)
--- NOTE | 2017-05-02 08:49 | Progress Note ---
Assessment and Plan - Patient Problems (1) Chronic kidney disease, stage 5 Current Visit: Yes Status: Chronic Plan to address problem: Patient with h/o CKD stage 5 followed at [place]. 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 Patient has left arm AVF. (2) Vertigo Current Visit: Yes Status: Acute (3) HTN (hypertension) Current Visit: Yes Status: Chronic Qualifiers: Hypertension type: essential hypertension Qualified Code(s): I10 - Essential (primary) hypertension Plan to address problem: BP well controlled. (4) Anemia secondary to renal failure Current Visit: Yes Status: Chronic Subjective Date of service: 05/02/17 Interval history: Patient continues to have vertigo on head movements. Overall symptoms are better. Objective - Vital Signs Vital signs: Vital Signs - 12hr 05/01/17 05/02/17 05/02/17 20:54 00:29 00:32 Temperature 97.9 F 97.7 F Pulse Rate 71 69 Respiratory 18 18 18 Rate Blood Pressure 153/98 148/93 O2 Sat by Pulse 97 96 Oximetry 05/02/17 05/02/17 05/02/17 04:22 04:25 08:35 Temperature 98.3 F 98.0 F Pulse Rate 67 76 Respiratory 20 20 20 Rate Blood Pressure 139/87 152/95 O2 Sat by Pulse 94 98 Oximetry - General Appearance General appearance: well-developed, well-nourished, appears stated age, obese, other (no distress) EENT: ATNC, PERRL, mucous membranes moist, hearing intact, vision intact Neck: no JVD, supple Respiratory: Present: Clear to Ascultation Cardiology: regular, S1S2, no murmurs Gastrointestinal: normoactive bowel sounds, no tenderness, no distended, obese Integumentary: no rash Neurologic: no focal deficit, no asterixis, alert and oriented x3, CN 3-12 intact Musculoskeletal: other (no edema, left arm AVF) Psychiatric: mood/affect appropriate, cooperative - Lab 05/01/17 06:58 05/02/17 04:51 Most recent lab results Calcium 8.5 mg/dL (8.4-10.2) 05/02/17 04:51 Phosphorus 3.70 mg/dL (2.5-4.5) 05/02/17 04:51
[2017-05-02] MEDS: NORVASC PO SCH (11:24)
[2017-05-02] MEDS: ZESTRIL PO SCH (11:25)
[2017-05-02] MEDS: BABY ASPIRIN PO SCH (11:25)
[2017-05-02] MEDS: PROSCAR PO SCH (11:26)
[2017-05-02] MEDS: VITAMIN D3 PO SCH (11:28)
[2017-05-02 13:00] LABS: INR 2.09 (0.87-1.13)
--- NOTE | 2017-05-02 16:44 | Progress Note ---
Assessment and Plan /possible chronic sinusitis noted on MRI, could be the possible cause of dizziness cont on zithromax /Vertebro-basilar artery syndrome Severe dizzines with positional change. Possible BPPV vs chronic sinusitis, placed on meclizine and zithromax MRI/MRA ordered negative for Brainstem stroke. <50 % stenosis on CDS and ECHO showed normal EF Patient can f/u with Dr Morel who is a specialist for BPPV /Chronic renal failure, stage 5 (severe) Nephrology consulted Has AVG in LUE Not on HD yet renal function stable /Anticoagulated on Coumadin likely for paroxysmal AFIB. 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 Medical records and medication list reviewed. No acute event overnight noted by the RN. Patient denies any chest pain or difficulty breathing. Patient is tolerating diet. He continue to c/o dizziness with positional change but lot better Discussed plan of care at bedside with patient. he states not comfortable going home as he still symptomatic PT eval pending Objective - Exam Narrative Exam: GENERAL: well-developed and well-nourished WM lying on bed appeared to be in no discomfort. HEENT: Normocephalic. Atraumatic. No conjunctival congestion or icterus. Patient has moist mucous membranes. NECK: Supple. Trachea midline. CHEST/LUNGS: Clear to auscultated bilaterally, breathing nonlabored. No wheezes crackles or rhonchi. HEART/CARDIOVASCULAR: Regular in rate and rhythm. S1 and S2 positive. ABDOMEN: Abdomen is soft, nontender. Patient has normal bowel sounds. SKIN: There is no rash. Warm and dry. NEURO: No focal motor deficit. Follows command. MUSCULOSKELETAL: No joint effusion or tenderness. EXTRIMITY: No edema, no cyanosis or clubbing. PSYCH: Cooperative. - Constitutional Vitals: Vital Signs - 12hr 05/02/17 05/02/17 05/02/17 08:35 11:25 12:57 Temperature 98.0 F 98.2 F Pulse Rate 76 76 74 Respiratory 20 20 Rate Blood Pressure 152/95 152/95 149/94 O2 Sat by Pulse 98 97 Oximetry 05/02/17 15:54 Temperature 98.5 F Pulse Rate 71 Respiratory 20 Rate Blood Pressure 135/86 O2 Sat by Pulse 96 Oximetry - Labs CBC & Chem 7: 05/01/17 06:58 05/03/17 05:23 Labs: Abnormal lab results 05/02/17 05/02/17 Range/Units 04:51 11:56 PT 24.5 H (12.2-14.9) Sec. INR 2.09 H (0.87-1.13) BUN 34 H (9-20) mg/dL Creatinine 5.0 H (0.8-1.5) mg/dL
[2017-05-02] MEDS: COUMADIN PO SCH (17:39)
[2017-05-03 06:16] LABS: Calcium 8.7 mg/dL (8.4-10.2); Chloride 103.7 mmol/L (98-107); Potassium 3.7 mmol/L (3.6-5.0)
--- NOTE | 2017-05-03 08:00 | Progress Note ---
Assessment and Plan - Patient Problems (1) Chronic kidney disease, stage 5 Current Visit: Yes Status: Chronic Plan to address problem: Patient with h/o CKD stage 5 followed at [place]. 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 Patient has left arm AVF. Patient doesn't want to start on dialysis until he sees his Contract Accountant at [place] next month. Will follow. (2) Vertigo Current Visit: Yes Status: Acute Plan to address problem: Improving. (3) HTN (hypertension) Current Visit: Yes Status: Chronic Qualifiers: Hypertension type: essential hypertension Qualified Code(s): I10 - Essential (primary) hypertension Plan to address problem: BP is fair. (4) Anemia secondary to renal failure Current Visit: Yes Status: Chronic Plan to address problem: Hb is stable. Subjective Date of service: 05/03/17 Interval history: Patient feels better. Objective - Vital Signs Vital signs: Vital Signs - 12hr 05/02/17 21:41 Temperature 98.1 F Pulse Rate 74 Respiratory 18 Rate Blood Pressure 170/102 O2 Sat by Pulse 98 Oximetry - General Appearance General appearance: well-developed, well-nourished, appears stated age, obese, other (no distress) EENT: ATNC, PERRL, mucous membranes moist, hearing intact, vision intact Neck: supple Respiratory: Present: Clear to Ascultation Cardiology: regular, S1S2, no murmurs Gastrointestinal: normoactive bowel sounds, no tenderness, no distended, no guarding, obese Integumentary: no rash Neurologic: no focal deficit, no asterixis, alert and oriented x3, CN 3-12 intact Musculoskeletal: other (no edema, left arm AVF) Psychiatric: mood/affect appropriate, cooperative - Lab 05/01/17 06:58 05/03/17 05:23 Most recent lab results Calcium 8.7 mg/dL (8.4-10.2) 05/03/17 05:23 Phosphorus 3.70 mg/dL (2.5-4.5) 05/02/17 04:51
--- NOTE | 2017-05-03 08:32 | Consultation ---
History of Present Illness - Reason for Consult Consult date: 05/03/17 stroke - History of Present Illness full note is dictated suspect left maxillary sinusitis is cause of the problem doubt stroke since MRA and MRI are negative in the QUARTER BACKER however both the CT and MRI point to maxillary sinusitis exam does show slight horiz. nystagmus but otherwise is OK Thanks for consult Past History Past Medical History: anemia, diabetes, hypertension, hyperlipidemia, renal failure, other (IVAN, A.fib) Medications and Allergies Allergies Allergy/AdvReac Type Severity Reaction Status Date / Time tetracycline [Tetracycline] Allergy Intermediate Nausea Verified 04/30/17 09:58 amlodipine [From Norvasc] AdvReac Vomiting Verified 04/30/17 09:58 Home Medications Medication Instructions Recorded Confirmed Last Taken Type Terazosin [Hytrin] 1 mg PO DAILY 04/04/13 12/13/14 12/13/14 History Warfarin [Coumadin] 7.5 mg PO QDAY 04/04/13 12/13/14 12/12/14 History ALBUTEROL Inhaler [ProAir HFA 2 puff IH QID PRN 11/10/14 12/13/14 12/13/14 History Inhaler] Aspirin [Aspirin BABY CHEW TAB] 162 mg PO DAILY 11/10/14 12/13/14 12/13/14 History Atorvastatin [Lipitor] 40 mg PO QHS 11/10/14 12/13/14 12/13/14 History Calcitriol 0.25 mcg PO 3XW 11/10/14 12/13/14 12/13/14 History Cholecalciferol Vit D3 [Vitamin D3] 3,000 unit PO QDAY 11/10/14 12/13/14 History Finasteride [Proscar] 5 mg PO QDAY 11/10/14 12/13/14 12/13/14 History Fosinopril Sodium 40 mg PO QDAY 11/10/14 12/13/14 12/13/14 History Furosemide [Lasix] 40 mg PO BID 11/10/14 12/13/14 12/12/14 History Nitroglycerin [Nitrostat] 0.4 mg SL Q5M 11/10/14 12/13/14 12/13/14 History Potassium Chloride 20 Meq 20 meq PO DAILY 11/10/14 12/13/14 12/13/14 History Tamsulosin 0.4 mg PO DAILY 11/10/14 12/13/14 12/13/14 History Metoprolol [Lopressor TAB] 50 mg PO Q8HR #90 tablet 12/14/14 Unknown Rx amLODIPine [Norvasc] 5 mg PO DAILY #30 tablet 12/14/14 Unknown Rx Active Meds: Active Medications Acetaminophen (Tylenol) 650 mg PO Q4H PRN PRN Reason: Pain MILD(1-3)/Fever >100.5/MENDOZA Albuterol (Proventil) 2.5 mg IH Q4HRT PRN PRN Reason: Shortness Of Breath Amlodipine Besylate (Norvasc) 5 mg PO DAILY [facility] Last Admin: 05/02/17 11:24 Dose: Not Given Aspirin (Baby Aspirin) 162 mg PO DAILY [facility] Last Admin: 05/02/17 11:25 Dose: 81 mg Bisacodyl (Dulcolax) 10 mg [place] QDAY PRN PRN Reason: Constipation unrelieved by [facility] Calcitriol (Rocaltrol) 0.25 mcg [facility] Cholecalciferol (Vitamin D3) 3,000 unit PO QDAY [facility] Last Admin: 05/02/17 11:28 Dose: 3,000 unit Famotidine (Pepcid) 10 mg IV BID [facility] Last Admin: 05/02/17 21:23 Dose: 10 mg Finasteride (Proscar) 5 mg PO QDAY [facility] Last Admin: 05/02/17 11:26 Dose: 5 mg Lisinopril (Zestril) 40 mg PO QDAY [facility] Last Admin: 05/02/17 11:25 Dose: 40 mg Magnesium Hydroxide (Milk Of Magnesia) 30 ml PO Q4H PRN PRN Reason: Constipation Meclizine HCl (Antivert) 25 mg PO Q8H PRN PRN Reason: Vertigo Last Admin: 05/02/17 02:00 Dose: 25 mg Ondansetron HCl (Zofran) 4 mg IV Q8H PRN PRN Reason: N/V unrelieved by Reglan Last Admin: 05/01/17 04:45 Dose: 4 mg Oxycodone/Acetaminophen (Percocet 5/325) 1 tab PO Q6H PRN PRN Reason: Pain, Moderate (4-6) Simvastatin (Zocor) 20 mg PO QHS [facility] Last Admin: 05/02/17 21:24 Dose: 20 mg Sodium Chloride (Sodium Chloride Flush Syringe 10 Ml) 10 ml IV PRN PRN PRN Reason: LINE FLUSH Warfarin Sodium (Coumadin) 7.5 mg PO 1700 [facility] PRN Reason: Protocol Last Admin: 05/02/17 17:39 Dose: 7.5 mg Exam - Constitutional Vitals: Temp Pulse Resp BP Pulse Ox 98.1 F 74 18 170/102 98 05/02/17 21:41 05/02/17 21:41 05/02/17 21:41 05/02/17 21:41 05/02/17 21:41 Results - Labs CBC & Chem 7: 05/01/17 06:58 05/03/17 05:23 Labs: Abnormal lab results 05/02/17 05/03/17 Range/Units 11:56 05:23 PT 24.5 H (12.2-14.9) Sec. INR 2.09 H (0.87-1.13) BUN 36 H (9-20) mg/dL Creatinine 5.0 H (0.8-1.5) mg/dL
[2017-05-03] MEDS ORDERED: ROCALTROL PO SCH (10:00)
[2017-05-03] MEDS: VITAMIN D3 PO SCH (11:42)
[2017-05-03] MEDS: ZESTRIL PO SCH (11:43)
[2017-05-03] MEDS: BABY ASPIRIN PO SCH (11:43)
[2017-05-03] MEDS: PROSCAR PO SCH (11:43)
[2017-05-03] MEDS: PEPCID IV SCH ×2 (11:44→12:33)
[2017-05-03] MEDS: NORVASC PO SCH (11:44)
[2017-05-03] MEDS ORDERED: PEPCID PO SCH (14:00)
--- NOTE | 2017-05-03 15:38 | Discharge Summary ---
Providers - Providers Date of Admission: 04/30/17 12:47 Date of discharge: 05/03/17 Attending physician: MARCELL JURADO 04/30/17 20:15 Occupational Therapy Evaluate and Treat [CONS] Routine Comment: Reason For Exam: Neuro deficits Physical Therapy Evaluation and Treat [CONS] Routine Comment: Reason For Exam: Neuro deficits 04/30/17 20:32 Consult to Physician [CONS] Routine Consulting Provider: BRIANNE UMAÑA Reason For Exam: ESRD Place consult to:: Alice Notified:: yes Phone number called:: [phone] If yes, spoke with:: Roddy Time called:: 09:30 05/01/17 16:18 Consult to Physician [CONS] Routine Consulting Provider: CHANTELLE COOK Reason For Exam: dizziness Place consult to:: welcome wagon host/hostess neurology Notified:: ANSWERING SERVICE Phone number called:: [phone] Was contact made?: Yes If yes, spoke with:: HOSSEIN Time called:: 09:13 Comment:: AMBAR NOTIFIED Hospitalization Condition: Stable Hospital course: Discharge diagnosis and management: /possible chronic sinusitis noted on MRI, could be the possible cause of dizziness cont on zithromax /Vertebro-basilar artery syndrome Severe dizzines with positional change. Possible BPPV vs chronic sinusitis, placed on meclizine and zithromax MRI/MRA ordered negative for Brainstem stroke. <50 % stenosis on CDS and ECHO showed normal EF Patient can f/u with Dr Morel who is a specialist for BPPV /Chronic renal failure, stage 5 (severe) Nephrology consulted Has AVG in LUE Not on HD yet renal function stable /Anticoagulated on Coumadin likely for paroxysmal AFIB. 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 HEENT: Normocephalic. Atraumatic. No conjunctival congestion or icterus. Patient has moist mucous membranes. NECK: Supple. Trachea midline. CHEST/LUNGS: Clear to auscultated bilaterally, breathing nonlabored. No wheezes crackles or rhonchi. HEART/CARDIOVASCULAR: Regular in rate and rhythm. S1 and S2 positive. ABDOMEN: Abdomen is soft, nontender. Patient has normal bowel sounds. SKIN: There is no rash. Warm and dry. NEURO: No focal motor deficit. Follows command. MUSCULOSKELETAL: No joint effusion or tenderness. EXTRIMITY: No edema, no cyanosis or clubbing. PSYCH: Cooperative. - Constitutional Vitals: Temp Pulse Resp BP Pulse Ox 98.2 F 71 21 133/86 97 05/03/17 08:59 05/03/17 08:59 05/03/17 08:59 05/03/17 08:59 05/03/17 08:59 Plan Activity: advance as tolerated, fall precautions Weight Bearing Status: Weight Bear as Tolerated Diet: low fat, low salt [facility]: [facility] [Other] - 3-5 Days Forms: Warfarin Discharge Instruction Prescriptions: Azithromycin [Zithromax TAB] 500 mg PO QDAY #3 tablet Meclizine [Antivert] 25 mg PO Q8H PRN #14 tablet PRN Reason: Vertigo
[2017-05-03 16:19] VITALS: BP 155/93
[2017-05-03] MEDS: COUMADIN PO SCH (18:16)
--- NOTE | 2017-05-03 23:20 | Consultation ---
HISTORY OF PRESENT ILLNESS: This 62-year-old black male who is admitted to the [facility]. The patient was initially admitted to the Emergency Room of the hospital where he had been seen for intense vertigo, nausea, dizziness, and problems with walking for 2 days. He got a spinning sensation when looking to the left. He denied headache or loss of consciousness. He did not have hiccups. He had been taking metoprolol 50 mg 3 times a day for blood pressure, amlodipine 5 mg daily, and in the past, has taken Proscar, Lasix, Nitrostat, potassium. He also has a history of hypercholesterolemia and hypertension. He denied any headaches; difficulty swallowing; numbness in the face, arms or legs. PHYSICAL EXAMINATION: VITAL SIGNS: His blood pressure is 149/94. His pulse rate is 71, respirations are 18. He is afebrile with temperature of 98.5. His PaO2 on room air is 96%. NEUROLOGIC: He is fully alert, conscious, oriented. He is not having any hiccups. His swallowing is good. His speech is excellent. He has no dysarthria or aphasia. Hearing testing is normal. On examining his extraocular movements, they are full, vertical, horizontal. He does have slight nystagmus horizontal on left, extreme lateral gaze, but not to the right. Airport Representative strength is equal. Motor tone is symmetrical. Cranial nerves 2-12 are otherwise intact. Motor and sensory examination normal. No tremors or asterixis are present. No focal seizure activity is appreciated. IMPRESSION: This patient's examination is quite unremarkable except for nystagmus. By history, it sounds as if he has labyrinthitis, cannot rule out Meniere disease. Interestingly, his CT scan and MRI scan are suggestive of acute sinusitis in the frontal sinus area and also there is a complete opacification of the left maxillary sinus noted on the CT. I might suggest treating the patient for acute sinusitis as both the CT scan and MRIs tend to point to the same finding of acute sinusitis in the left maxillary sinus. Occasionally, this may be responsible for vertigo. Treatment would be warranted I think given the patient's age and other remote factors. I do not think he has had a stroke. I did review his MRI and MRA and his MRA is entirely unremarkable. JOB# [id number] LOLA/DAYNA
== END 2017-05-03 18:22 | disposition home or self-care (01) | DRG 69 ==
LOC: ED 09:53 → 3A 12:47
PROVIDERS: ADMIT Internal Medicine; ATTEND Internal Medicine
PROC: 3E0234Z Introduction of Serum, Toxoid and Vaccine into Muscle, Percutaneous Approach (ICD-10-PCS; principal; 2017-04-30)
DX: G45.0 Vertebro-basilar artery syndrome (principal); N18.5 Chronic kidney disease, stage 5; I12.0 Hypertensive chronic kidney disease with stage 5 chronic kidney disease or end stage renal disease; J45.909 Unspecified asthma, uncomplicated; N40.0 Benign prostatic hyperplasia without lower urinary tract symptoms; E11.22 Type 2 diabetes mellitus with diabetic chronic kidney disease; D63.8 Anemia in other chronic diseases classified elsewhere; J32.9 Chronic sinusitis, unspecified; I25.2 Old myocardial infarction; Z79.82 Long term (current) use of aspirin; Z88.8 Allergy status to other drugs, medicaments and biological substances; Z79.899 Other long term (current) drug therapy; Z87.891 Personal history of nicotine dependence; Z23 Encounter for immunization; I48.0 Paroxysmal atrial fibrillation
CPT/HCPCS: 36415; 70450; 70544; 70551; 71010; 80048; 80053; 80061; 80074; 82962; 83036; 84100; 84484; 85025; 85610; 90686; 93005; 93010; 93306; 93880; 96374; J2405